=== PATIENT | male | born 1995 | race Two or more races ===

== ENCOUNTER 2016-08-15 10:02 | Inpatient (IN) | payer OTHER ==
[~2016-08-15] VITALS: Ht 185.4 cm; Wt 96.2 kg
[2016-08-15] MEDS ORDERED: SODIUM CHLORIDE 0.9% 1,000 ML IV ONE ×2 (11:17→13:14)
[2016-08-15] MEDS ORDERED: FAMOTIDINE 20 MG/2 ML IVP ONE (11:30)
[2016-08-15] MEDS ORDERED: ONDANSETRON 2MG/ML, 2ML IVPush ONE (11:30)
[2016-08-15] MEDS ORDERED: SODIUM CHLORIDE FLUSH 10ML SYR IVF ONE (11:30)
[2016-08-15] MEDS ORDERED: SODIUM CHLORIDE 0.9% 1,000ML IVBOLUS ONE (11:30)
[2016-08-15] MEDS ORDERED: FAMOTIDINE 20 MG/2 ML ONE (11:31)
[2016-08-15] MEDS ORDERED: ONDANSETRON 2MG/ML, 2ML ONE (11:31)
[2016-08-15 11:38] LABS: HEMOGLOBIN 17.3 g/dL (13.7-18.0)
[2016-08-15 11:50] LABS: ASPARTATE AMINO TRANSFERASE 171 U/L (15-37); BLOOD UREA NITROGEN 11 mg/dL (7-18)
[2016-08-15] MEDS ORDERED: HYDROmorphone 1 MG/ML, 1ML IVPush PRN ×2 (12:00→13:30)
[2016-08-15] MEDS ORDERED: HYDROmorphone 1 MG/ML, 1ML ONE (12:21)
[2016-08-15] MEDS ORDERED: ENOXAPARIN 40 MG/0.4 ML SQ SCH (13:30)
[2016-08-15] MEDS ORDERED: ONDANSETRON 2MG/ML, 2ML IVPush PRN ×3 (13:30)
[2016-08-15] MEDS ORDERED: POLYETHYLENE GLYCOL 17 GM PACKET PO PRN (13:30)
[2016-08-15] MEDS ORDERED: DOCUSATE 100 MG CAPSULE PO PRN (13:30)
[2016-08-15] MEDS ORDERED: PROMETHAZINE 25 MG/ML, 1ML IM PRN (13:30)
[2016-08-15] MEDS ORDERED: SODIUM CHLORIDE FLUSH 10ML SYR IVF PRN (13:30)
[2016-08-15] MEDS ORDERED: BISACODYL 10 MG SUPP PR PRN (13:30)
[2016-08-15] MEDS ORDERED: POTASSIUM PHOSPHATE 44 MEQ in SODIUM CHLORIDE 0.9% 500 ML IV ONE (14:30)
[2016-08-15] MEDS: SODIUM CHLORIDE 0.9% 1,000 ML IV SCH ×2 (15:15→22:43)
[2016-08-15] MEDS: ONDANSETRON 2MG/ML, 2ML IVP PRN ×2 (15:26→22:53)
[2016-08-15] MEDS: MORPHINE SULFATE 4 MG/ML, 1ML IVPush PRN ×2 (15:26→15:43)
[2016-08-15 15:31] VITALS: BP 135/87
[2016-08-15] MEDS ORDERED: HYDROmorphone 1 MG/ML, 1ML IM PRN (18:30)
[2016-08-15 18:46] VITALS: BP 139/93
[2016-08-15] MEDS: HYDROmorphone 1 MG/ML, 1ML IV PRN ×2 (19:33→22:53)
[2016-08-16] VITALS (15 sets, daily range): BP systolic 112–172; BP diastolic 81–127
[2016-08-16] MEDS: SODIUM CHLORIDE 0.9% 1,000 ML IV SCH ×2 (05:00→11:13)
[2016-08-16 05:24] LABS: HEMOGLOBIN 15.8 g/dL (13.7-18.0)
[2016-08-16] MEDS: HYDROmorphone 1 MG/ML, 1ML IV PRN (08:00)
[2016-08-16 08:03] LABS: HEMOGLOBIN 15.4 g/dL (13.7-18.0)
[2016-08-16 08:38] LABS: BLOOD UREA NITROGEN 37 mg/dL (7-18)
[2016-08-16 08:49] LABS: ASPARTATE AMINO TRANSFERASE 203 U/L (15-37)
[2016-08-16 13:34] LABS: BLOOD UREA NITROGEN 44 mg/dL (7-18)
[2016-08-16 13:44] LABS: ASPARTATE AMINO TRANSFERASE 356 U/L (15-37)
[2016-08-16 13:48] LABS: HEMOGLOBIN 14.1 g/dL (13.7-18.0)
[2016-08-16 13:59] LABS: ANISOCYTOSIS 1+
[2016-08-16 14:01] LABS: SPHEROCYTES 1+
[2016-08-16] MEDS ORDERED: INSULIN REGULAR 100 UNITS/ML, 3ML VIAL IVPush STA (14:09)
[2016-08-16] MEDS ORDERED: SODIUM BICARBONATE 1 MEQ/ML, 50ML VIAL IVPush STA (14:09)
[2016-08-16] MEDS ORDERED: DEXTROSE 50%, 50ML SYRINGE IVPush STA (14:09)
[2016-08-16] MEDS ORDERED: SODIUM POLYSTYRENE SULFONATE ORAL SUSP PO ONE (14:30)
[2016-08-16 16:07] LABS: BLOOD UREA NITROGEN 46 mg/dL (7-18)
[2016-08-16] MEDS ORDERED: FENTANYL PF 100 MCG/2ML ONE (16:19)
[2016-08-16 16:21] LABS: PROTIME 12.1 Seconds (9.6-11.5)
[2016-08-16 16:42] LABS: ASPARTATE AMINO TRANSFERASE 377 U/L (15-37)
[2016-08-16 17:14] LABS: DIFF TOTAL CELLS COUNTED 100 CELL DIFF
[2016-08-16 17:15] LABS: HEMOGLOBIN 13.6 g/dL (13.7-18.0)
[2016-08-16 17:20] LABS: VERIFY COUNTS? YES
[2016-08-16 17:21] LABS: ANISOCYTOSIS 1+
[2016-08-16 17:23] LABS: MONOS WITH VACUOLES 1+
[2016-08-16 17:30] LABS: SCHISTOCYTES 1+
[2016-08-16] MEDS ORDERED: POTASSIUM PHOSPHATE 44 MEQ in SODIUM CHLORIDE 0.9% 500 ML IV ONE (17:30)
[2016-08-16] MEDS ORDERED: CALCIUM GLUCONATE 4.6 MEQ/10 ML IV ONE (19:30)
[2016-08-16] MEDS ORDERED: CALCIUM GLUCONATE 4.6 MEQ/10 ML INJ ONE (20:00)
[2016-08-16] MEDS: ONDANSETRON 2MG/ML, 2ML IVP PRN (20:40)
[2016-08-17] VITALS (10 sets, daily range): BP systolic 145–158; BP diastolic 90–110
[2016-08-17] MEDS: HYDROmorphone 1 MG/ML, 1ML IV PRN ×6 (00:48→22:08)
[2016-08-17 07:29] LABS: BLOOD UREA NITROGEN 42 mg/dL (7-18)
[2016-08-17 07:49] LABS: ASPARTATE AMINO TRANSFERASE 379 U/L (15-37)
[2016-08-17 08:02] LABS: HEMOGLOBIN 11.8 g/dL (13.7-18.0)
[2016-08-17 08:16] LABS: DIFF TOTAL CELLS COUNTED 100 CELL DIFF
[2016-08-17] MEDS ORDERED: MAGNESIUM SULFATE PMX 2GM/50ML 50 ML IV ONE (08:30)
[2016-08-17 10:31] LABS: ANISOCYTOSIS 1+; SCHISTOCYTES 1+; SPHEROCYTES 1+; VERIFY COUNTS? YES
[2016-08-17 11:46] LABS: HEP B SURF. AB > 1000.0 mIU/mL (0.0-10.0)
[2016-08-17 12:22] LABS: BLOOD UREA NITROGEN 50 mg/dL (7-18)
[2016-08-17 12:26] LABS: ASPARTATE AMINO TRANSFERASE 392 U/L (15-37)
[2016-08-17 12:46] LABS: HEMOGLOBIN 11.7 g/dL (13.7-18.0)
[2016-08-17 12:47] LABS: DIFF TOTAL CELLS COUNTED 100 CELL DIFF
[2016-08-17 12:50] LABS: ANISOCYTOSIS 1+; SCHISTOCYTES 1+; SPHEROCYTES 1+; VERIFY COUNTS? YES
[2016-08-17] MEDS: SODIUM CHLORIDE 0.9% 1,000 ML IV SCH ×2 (13:13→19:53)
[2016-08-17] MEDS ORDERED: SODIUM CHLORIDE 0.9% 1,000 ML IV SCH (13:13)
[2016-08-17] MEDS: CEFTRIAXONE PMX 2GM/50ML 50 ML IV SCH (15:45)
[2016-08-17] MEDS: AZITHROMYCIN 500 MG in SODIUM CHLORIDE 0.9% 250 ML IV SCH (16:23)
[2016-08-18] VITALS (10 sets, daily range): BP systolic 127–147; BP diastolic 80–105
[2016-08-18] MEDS: SODIUM CHLORIDE 0.9% 1,000 ML IV SCH ×4 (00:15→22:33)
[2016-08-18] MEDS: HYDROmorphone 1 MG/ML, 1ML IV PRN ×5 (04:27→21:09)
[2016-08-18] MEDS: ONDANSETRON 2MG/ML, 2ML IVP PRN ×2 (04:27→12:30)
[2016-08-18 05:52] LABS: BLOOD UREA NITROGEN 78 mg/dL (7-18)
[2016-08-18 06:00] LABS: ASPARTATE AMINO TRANSFERASE 323 U/L (15-37)
[2016-08-18 06:33] LABS: DIFF TOTAL CELLS COUNTED 100 CELL DIFF; HEMOGLOBIN 8.8 g/dL (13.7-18.0)
[2016-08-18 06:35] LABS: ANISOCYTOSIS 1+
[2016-08-18 06:36] LABS: SCHISTOCYTES 1+; VERIFY COUNTS? YES
[2016-08-18 08:15] LABS: HEPATITIS A ANTIBODY TOTAL Reactive (Nonreactive); HEPATITIS C VIRUS ANTIBODY Nonreactive (Nonreactive)
[2016-08-18] MEDS: CHOLECALCIFEROL 400 UNITS TABLET PO SCH ×3 (12:32→21:08)
[2016-08-18] MEDS: CEFTRIAXONE PMX 2GM/50ML 50 ML IV SCH (15:01)
[2016-08-18] MEDS: AZITHROMYCIN 500 MG in SODIUM CHLORIDE 0.9% 250 ML IV SCH (15:37)
[2016-08-18] MEDS ORDERED: CALCIUM GLUCONATE 4.6 MEQ/10 ML INJ ONE (16:00)
[2016-08-19] VITALS (9 sets, daily range): BP systolic 122–158; BP diastolic 59–95
[2016-08-19] MEDS: HYDROmorphone 1 MG/ML, 1ML IV PRN ×6 (00:15→23:06)
[2016-08-19 05:40] LABS: ASPARTATE AMINO TRANSFERASE 112 U/L (15-37); BLOOD UREA NITROGEN 55 mg/dL (7-18)
[2016-08-19 05:42] LABS: HEMOGLOBIN 8.1 g/dL (13.7-18.0)
[2016-08-19 05:57] LABS: DIFF TOTAL CELLS COUNTED 100 CELL DIFF
[2016-08-19 06:00] LABS: ANISOCYTOSIS 1+; POLYCHROMASIA 1+; VERIFY COUNTS? YES
[2016-08-19 06:05] LABS: SCHISTOCYTES 1+
[2016-08-19] MEDS: SODIUM CHLORIDE 0.9% 1,000 ML IV SCH (06:10)
[2016-08-19] MEDS ORDERED: CALCIUM GLUCONATE 4.6 MEQ/10 ML INJ ONE (09:30)
[2016-08-19] MEDS: CHOLECALCIFEROL 400 UNITS TABLET PO SCH ×3 (09:46→21:55)
[2016-08-19] MEDS: ERGOCALCIFEROL 50,000 UNIT CAPSULE PO SCH (09:46)
[2016-08-19] MEDS ORDERED: SODIUM CHLORIDE 0.9% 1,000 ML IV SCH (13:13)
[2016-08-19] MEDS: CEFTRIAXONE PMX 2GM/50ML 50 ML IV SCH (15:33)
[2016-08-19] MEDS: AZITHROMYCIN 500 MG in SODIUM CHLORIDE 0.9% 250 ML IV SCH (16:11)
[2016-08-19] MEDS: ONDANSETRON 2MG/ML, 2ML IVP PRN (23:06)
[2016-08-20] VITALS (16 sets, daily range): BP systolic 121–154; BP diastolic 73–100
[2016-08-20] MEDS: HYDROmorphone 1 MG/ML, 1ML IV PRN ×6 (05:02→23:55)
[2016-08-20 05:05] LABS: HEMOGLOBIN 7.1 g/dL (13.7-18.0)
[2016-08-20 05:11] LABS: ASPARTATE AMINO TRANSFERASE 59 U/L (15-37); BLOOD UREA NITROGEN 47 mg/dL (7-18)
[2016-08-20 05:41] LABS: DIFF TOTAL CELLS COUNTED 100 CELL DIFF
[2016-08-20 05:44] LABS: ANISOCYTOSIS 1+; SCHISTOCYTES 1+; SPHEROCYTES 1+; VERIFY COUNTS? YES
[2016-08-20 05:48] LABS: POLYCHROMASIA 1+
[2016-08-20 06:54] LABS: PROTIME 11.5 Seconds (9.6-11.5)
[2016-08-20] MEDS ORDERED: CALCIUM GLUCONATE 4.6 MEQ/10 ML INJ ONE (09:00)
[2016-08-20] MEDS: CHOLECALCIFEROL 400 UNITS TABLET PO SCH ×3 (09:53→21:00)
[2016-08-20] MEDS ORDERED: DIPHENHYDRAMINE 50 MG/ML, 1ML IVPush ONE (13:30)
[2016-08-20] MEDS: CEFTRIAXONE PMX 2GM/50ML 50 ML IV SCH (16:17)
[2016-08-20] MEDS: AZITHROMYCIN 500 MG in SODIUM CHLORIDE 0.9% 250 ML IV SCH (17:27)
[2016-08-21] VITALS (16 sets, daily range): BP systolic 122–146; BP diastolic 68–96
[2016-08-21] MEDS: HYDROmorphone 1 MG/ML, 1ML IV PRN ×6 (04:42→23:16)
[2016-08-21] MEDS: ONDANSETRON 2MG/ML, 2ML IVP PRN (04:42)
[2016-08-21 04:57] LABS: BLOOD UREA NITROGEN 66 mg/dL (7-18)
[2016-08-21 05:02] LABS: ASPARTATE AMINO TRANSFERASE 33 U/L (15-37)
[2016-08-21 05:17] LABS: HEMOGLOBIN 9.5 g/dL (13.7-18.0)
[2016-08-21 05:52] LABS: DIFF TOTAL CELLS COUNTED 100 CELL DIFF
[2016-08-21 05:53] LABS: ANISOCYTOSIS 1+; VERIFY COUNTS? YES
[2016-08-21 05:54] LABS: POLYCHROMASIA 1+
[2016-08-21 05:56] LABS: SCHISTOCYTES 1+
[2016-08-21] MEDS: CHOLECALCIFEROL 400 UNITS TABLET PO SCH ×3 (08:27→22:14)
[2016-08-21] MEDS ORDERED: CALCIUM GLUCONATE 4.6 MEQ/10 ML INJ ONE (09:30)
[2016-08-21] MEDS: CEFDINIR 300 MG CAPSULE PO SCH (22:14)
[2016-08-22] VITALS (14 sets, daily range): BP systolic 132–150; BP diastolic 60–107
[2016-08-22] MEDS: HYDROmorphone 1 MG/ML, 1ML IV PRN ×6 (02:18→21:47)
[2016-08-22 05:41] LABS: HEMOGLOBIN 9.3 g/dL (13.7-18.0)
[2016-08-22 06:04] LABS: BLOOD UREA NITROGEN 46 mg/dL (7-18)
[2016-08-22] MEDS: CHOLECALCIFEROL 400 UNITS TABLET PO SCH ×3 (08:54→21:47)
[2016-08-22] MEDS ORDERED: CALCIUM GLUCONATE 4.6 MEQ/10 ML INJ ONE (10:30)
[2016-08-22] MEDS ORDERED: DIPHENHYDRAMINE 25 MG CAPSULE PO ONE (13:00)
[2016-08-22] MEDS ORDERED: DIPHENHYDRAMINE 50 MG/ML, 1ML IVPush ONE (13:00)
[2016-08-22 16:47] LABS: ANA SCREEN NEGATIVE (Negative)
[2016-08-22] MEDS: CEFDINIR 300 MG CAPSULE PO SCH (21:47)
[2016-08-23] VITALS (9 sets, daily range): BP systolic 145–161; BP diastolic 78–104
[2016-08-23] MEDS: HYDROmorphone 1 MG/ML, 1ML IV PRN ×7 (00:55→21:39)
[2016-08-23 04:34] LABS: BLOOD UREA NITROGEN 64 mg/dL (7-18)
[2016-08-23] MEDS: CHOLECALCIFEROL 400 UNITS TABLET PO SCH ×3 (08:56→21:39)
[2016-08-23 09:15] LABS: HEMOGLOBIN 9.4 g/dL (13.7-18.0)
[2016-08-23] MEDS ORDERED: DIPHENHYDRAMINE 25 MG CAPSULE PO ONE (14:30)
[2016-08-23] MEDS ORDERED: DIPHENHYDRAMINE 25 MG CAPSULE ONE (14:35)
[2016-08-23] MEDS ORDERED: CALCIUM GLUCONATE 4.6 MEQ/10 ML IV ONE (15:00)
[2016-08-23] MEDS: CEFDINIR 300 MG CAPSULE PO SCH (21:39)
[2016-08-24] MEDS: HYDROmorphone 1 MG/ML, 1ML IV PRN ×6 (00:42→17:41)
[2016-08-24 02:42] VITALS: BP 147/102
[2016-08-24] MEDS ORDERED: LABETALOL 5MG/ML, 20ML IVPush PRN ×2 (03:00→20:48)
[2016-08-24 04:30] VITALS: BP 148/89
[2016-08-24 05:28] LABS: HEMOGLOBIN 8.9 g/dL (13.7-18.0)
[2016-08-24 05:43] LABS: BLOOD UREA NITROGEN 44 mg/dL (7-18)
[2016-08-24 05:46] LABS: ASPARTATE AMINO TRANSFERASE 26 U/L (15-37)
[2016-08-24] MEDS: CHOLECALCIFEROL 400 UNITS TABLET PO SCH ×3 (08:07→20:56)
[2016-08-24] MEDS ORDERED: MIDAZOLAM 1 MG/ML, 5ML ONE (10:14)
[2016-08-24] MEDS ORDERED: FENTANYL PF 100 MCG/2ML ONE (10:15)
[2016-08-24] MEDS ORDERED: FLUMAZENIL 0.1 MG/1 ML, 5ML ONE (10:15)
[2016-08-24] MEDS ORDERED: NALOXONE 1 MG/ML, 2ML ONE (10:15)
[2016-08-24] MEDS ORDERED: FUROSEMIDE 20 MG/2 ML IV ONE (10:30)
[2016-08-24 11:56] VITALS: BP 142/89
[2016-08-24 13:45] VITALS: BP 150/92
[2016-08-24 16:56] LABS: HEMOGLOBIN 8.4 g/dL (13.7-18.0)
[2016-08-24 20:22] VITALS: BP 154/84
[2016-08-24] MEDS: CEFDINIR 300 MG CAPSULE PO SCH (20:55)
[2016-08-25] MEDS: HYDROmorphone 1 MG/ML, 1ML IV PRN ×4 (00:22→19:51)
[2016-08-25 02:47] VITALS: BP 155/97
[2016-08-25 06:01] LABS: HEMOGLOBIN 8.1 g/dL (13.7-18.0)
[2016-08-25 06:18] LABS: DIFF TOTAL CELLS COUNTED 100 CELL DIFF
[2016-08-25 06:20] LABS: ANISOCYTOSIS 1+; VERIFY COUNTS? YES
[2016-08-25 06:39] LABS: ASPARTATE AMINO TRANSFERASE 23 U/L (15-37)
[2016-08-25 07:17] LABS: BLOOD UREA NITROGEN 55 mg/dL (7-18)
[2016-08-25 08:30] VITALS: BP 152/96
[2016-08-25] MEDS ORDERED: FUROSEMIDE 20 MG/2 ML IV SCH (09:00)
[2016-08-25] MEDS: CHOLECALCIFEROL 400 UNITS TABLET PO SCH ×3 (09:10→19:50)
[2016-08-25] MEDS: POTASSIUM CHLORIDE 20 MEQ TAB.ER.PRT PO SCH (09:10)
[2016-08-25 19:23] VITALS: BP 148/89
[2016-08-25] MEDS: CEFDINIR 300 MG CAPSULE PO SCH (19:50)
[2016-08-25] MEDS: FUROSEMIDE 20 MG/2 ML IV SCH (19:50)
[2016-08-26 02:05] VITALS: BP 152/84
[2016-08-26] MEDS: HYDROmorphone 1 MG/ML, 1ML IV PRN ×2 (02:10→09:00)
[2016-08-26 05:38] LABS: HEMOGLOBIN 8.2 g/dL (13.7-18.0)
[2016-08-26 06:02] LABS: ASPARTATE AMINO TRANSFERASE 22 U/L (15-37); BLOOD UREA NITROGEN 36 mg/dL (7-18)
[2016-08-26 06:57] LABS: DIFF TOTAL CELLS COUNTED 100 CELL DIFF
[2016-08-26] MEDS ORDERED: HYDR-3241 PO (06:58)
[2016-08-26] MEDS ORDERED: FURO10VI37 IV (06:58)
[2016-08-26] MEDS ORDERED: CEFD300C2 PO (06:58)
[2016-08-26] MEDS ORDERED: ERGO500017 PO (06:58)
[2016-08-26] MEDS ORDERED: CHOL400T2 PO (06:58)
[2016-08-26] MEDS ORDERED: POTA20TA6 PO (06:58)
[2016-08-26 06:59] LABS: ANISOCYTOSIS 1+; VERIFY COUNTS? YES
[2016-08-26 07:00] LABS: HYPOCHROMIA 1+; POLYCHROMASIA 1+
[2016-08-26 07:47] VITALS: BP 147/96
[2016-08-26] MEDS: POTASSIUM CHLORIDE 20 MEQ TAB.ER.PRT PO SCH (08:59)
[2016-08-26] MEDS: FUROSEMIDE 20 MG/2 ML IV SCH (08:59)
[2016-08-26] MEDS: ERGOCALCIFEROL 50,000 UNIT CAPSULE PO SCH (09:00)
[2016-08-26] MEDS: CHOLECALCIFEROL 400 UNITS TABLET PO SCH (09:00)
== END 2016-08-26 12:38 | disposition short-term general hospital (02) | DRG 438 ==
LOC: ED 13:13 → EDIP 13:14 → ED 13:28 → 4WST 15:15
PROVIDERS: ADMIT Hospitalist; ATTEND Hospitalist
PROC: 0T9B70Z Drainage of Bladder with Drainage Device, Via Natural or Artificial Opening (ICD-10-PCS; 2016-08-15)
PROC: 02HV33Z Insertion of Infusion Device into Superior Vena Cava, Percutaneous Approach (ICD-10-PCS; principal; 2016-08-16)
PROC: B548ZZA Ultrasonography of Superior Vena Cava, Guidance (ICD-10-PCS; 2016-08-16)
PROC: B5181ZA Fluoroscopy of Superior Vena Cava using Low Osmolar Contrast, Guidance (ICD-10-PCS; 2016-08-16)
PROC: 6A551Z3 Pheresis of Plasma, Multiple (ICD-10-PCS; 2016-08-16)
PROC: 5A1D60Z (ICD-10-PCS; 2016-08-17)
PROC: 30233L1 Transfusion of Nonautologous Fresh Plasma into Peripheral Vein, Percutaneous Approach (ICD-10-PCS; 2016-08-19)
PROC: 30233N1 Transfusion of Nonautologous Red Blood Cells into Peripheral Vein, Percutaneous Approach (ICD-10-PCS; 2016-08-19)
PROC: 30233K1 Transfusion of Nonautologous Frozen Plasma into Peripheral Vein, Percutaneous Approach (ICD-10-PCS; 2016-08-19)
PROC: 0TB13ZX Excision of Left Kidney, Percutaneous Approach, Diagnostic (ICD-10-PCS; 2016-08-24)
DX: K85.20 Alcohol induced acute pancreatitis without necrosis or infection (principal); J18.9 Pneumonia, unspecified organism; D65 Disseminated intravascular coagulation [defibrination syndrome]; M31.1 Thrombotic microangiopathy; D59.3 Hemolytic-uremic syndrome; N17.9 Acute kidney failure, unspecified; D59.4 Other nonautoimmune hemolytic anemias; E83.39 Other disorders of phosphorus metabolism; E87.5 Hyperkalemia; F10.20 Alcohol dependence, uncomplicated; K70.10 Alcoholic hepatitis without ascites; R31.29 Other microscopic hematuria; R60.0 Localized edema; Z82.49 Family history of ischemic heart disease and other diseases of the circulatory system; Z99.2 Dependence on renal dialysis
CPT/HCPCS: 36415; 36514; 36556; 50200; 71010; 74150; 76700; 76937; 77001; 77012; 78707; 80053; 80061; 80069; 81001; 82105; 82140; 82248; 82306; 82330; 82550; 82570; 83010; 83516; 83605; 83615; 83690; 83735; 84100; 84145; 84156; 84300; 84425; 84590; 84630; 85025; 85045; 85049; 85379; 85384; 85397; 85555; 85610; 85651; 85730; 86038; 86140; 86157; 86704; 86706; 86708; 86803; 86850; 86880; 86900; 86923; 87040; 87086; 87340; 88300; 93306; 96361; 96374; 96375; 99156; 99157; J0456; J0696; J1170; J1815; J2250; J2405; J2550; J3010; A9562; C1751; C9898; J0610; J1200; J1642; J1940; J2310; J3475; J7030; J7040; J7050; J7512; P9016; P9017; Q0163; S0028

== ENCOUNTER 2017-09-27 12:26 | Inpatient (IN) | payer OTHER ==
[~2017-09-27] VITALS: Ht 185.4 cm; Wt 80.0 kg
[~2017-09-27 12:26] MED LIST: CEFD300C37 PO; CHOL400T2 PO; ERGO500017 PO; FURO10VI37 IV; HYDR-3241 PO; POTA20TA6 PO
[2017-09-27] MEDS ORDERED: SODIUM CHLORIDE FLUSH 10ML SYR IVF ONE ×2 (13:30→15:30)
[2017-09-27 13:37] LABS: MEAN CORPUSCULAR HEMOGLOBIN 33.1 pg (27.5-34.5); MEAN CORPUSCULAR VOLUME 97.3 fL (81-97); RED BLOOD COUNT 5.01 x10^6/uL (4.38-5.82)
[2017-09-27 13:38] LABS: BASOPHILS # (AUTO) 0.01 x10^3/uL (0-0.1); BASOPHILS % (AUTO) 0 % (0-1); EOSINOPHILS % (AUTO) 0 % (1-7); LYMPHOCYTES # (AUTO) 0.52 x10^3/uL (1-3.4); LYMPHOCYTES % (AUTO) 4 % (22-44); MD NO; MEAN PLATELET VOLUME 7.8 fL (7.4-10.4); MONOCYTES # (AUTO) 1.02 x10^3/uL (0.2-0.8); MONOCYTES % (AUTO) 8 % (2-9); NEUTROPHILS # (AUTO) 10.94 x10^3/uL (1.8-6.8); NEUTROPHILS % (AUTO) 88 % (42-75); PLATELET COUNT 199 x10^3/uL (130-400); RED CELL DISTRIBUTION WIDTH 14.3 % (9.4-14.8)
[2017-09-27 13:45] LABS: INTERNATIONAL NORMALIZED RATIO 1.06 (0.93-1.1)
[2017-09-27 13:51] LABS: ALANINE AMINOTRANSFERASE 50 U/L (12-78); ALBUMIN 4.2 g/dL (3.4-5.0); ANION GAP 11 mmol/L (5-15); CALCIUM 8.8 mg/dL (8.5-10.1); CHLORIDE 96 mmol/L (98-107)
[2017-09-27 13:54] LABS: ALKALINE PHOSPHATASE 117 U/L (45-117); BILIRUBIN,TOTAL 1.4 mg/dL (0.2-1.0); TOTAL PROTEIN 7.7 g/dL (6.4-8.2)
[2017-09-27] MEDS ORDERED: PROMETHAZINE 25 MG/ML, 1ML IM ONE (15:30)
[2017-09-27] MEDS ORDERED: SODIUM CHLORIDE 0.9% 1,000ML IVBOLUS ONE (15:30)
[2017-09-27] MEDS ORDERED: PROMETHAZINE 25 MG/ML, 1ML ONE (15:45)
[2017-09-27] MEDS ORDERED: MORPHINE SULFATE 4 MG/ML, 1ML ONE ×2 (15:45→17:15)
[2017-09-27] MEDS: MORPHINE SULFATE 4 MG/ML, 1ML IVPush PRN ×2 (15:51→17:19)
[2017-09-27] MEDS ORDERED: FLUO40CA9 PO (18:19)
[2017-09-27] MEDS ORDERED: GABA300C10 PO (18:19)
[2017-09-27] MEDS ORDERED: ONDANSETRON 2MG/ML, 2ML IVPush PRN (18:30)
[2017-09-27] MEDS ORDERED: BISACODYL 10 MG SUPP PR PRN (18:30)
[2017-09-27] MEDS: SODIUM CHLORIDE 0.9% 1,000 ML IV SCH (19:00)
[2017-09-27] MEDS ORDERED: morphine SULFATE 10 MG/ML, 1ML ONE (19:23)
[2017-09-27] MEDS: morphine SULFATE 10 MG/ML, 1ML IVPush PRN ×2 (19:25→23:20)
[2017-09-27 19:27] LABS: FOLATE LEVEL 6.3 ng/mL (3.1-17.5)
[2017-09-27 22:27] VITALS: BP 137/96
[2017-09-27] MEDS: CHOLECALCIFEROL 400 UNITS TABLET PO SCH (23:20)
[2017-09-28] MEDS: SODIUM CHLORIDE 0.9% 1,000 ML IV SCH ×2 (01:11→08:51)
[2017-09-28] MEDS: HEPARIN 5,000 UNITS/ML, 1ML SQ SCH ×3 (01:12→17:21)
[2017-09-28 02:44] VITALS: BP 132/90
[2017-09-28 05:49] LABS: MEAN CORPUSCULAR HEMOGLOBIN 33.6 pg (27.5-34.5); MEAN CORPUSCULAR HGB CONC 34.3 g/dL (33.2-36.2); MEAN CORPUSCULAR VOLUME 97.9 fL (81-97); MEAN PLATELET VOLUME 8.1 fL (7.4-10.4); PLATELET COUNT 150 x10^3/uL (130-400); RED BLOOD COUNT 4.81 x10^6/uL (4.38-5.82); RED CELL DISTRIBUTION WIDTH 14.9 % (9.4-14.8)
[2017-09-28 05:59] LABS: ALBUMIN 3.2 g/dL (3.4-5.0); CHLORIDE 102 mmol/L (98-107)
[2017-09-28] MEDS: morphine SULFATE 10 MG/ML, 1ML IVPush PRN ×5 (06:01→20:57)
[2017-09-28 06:10] LABS: BASOPHILS % (AUTO) 0 % (0-1); EOSINOPHILS # (AUTO) 0.01 x10^3/uL (0-0.4); EOSINOPHILS % (AUTO) 0 % (1-7); LYMPHOCYTES # (AUTO) 0.49 x10^3/uL (1-3.4); LYMPHOCYTES % (AUTO) 4 % (22-44); MD SCAN; MONOCYTES % (AUTO) 7 % (2-9); NEUTROPHILS # (AUTO) 10.47 x10^3/uL (1.8-6.8); NEUTROPHILS % (AUTO) 89 % (42-75)
[2017-09-28 06:13] LABS: ALANINE AMINOTRANSFERASE 62 U/L (12-78); ALKALINE PHOSPHATASE 87 U/L (45-117); ANION GAP 10 mmol/L (5-15); BILIRUBIN,TOTAL 2.2 mg/dL (0.2-1.0); CALCIUM 8.5 mg/dL (8.5-10.1); CHOL/HDL RATIO 3.4; CHOLESTEROL, TOTAL 120 mg/dL (140-239); CREATININE 0.63 mg/dL (0.7-1.3); HDL CHOL % 29 % (26-37); HDL CHOLESTEROL (DIRECT) 35 mg/dL (40-60); LDL CHOLESTEROL,CALCULATED 56 mg/dL (54-169); LDL/HDL RATIO 1.6 (0.5-3.0); TOTAL PROTEIN 6.1 g/dL (6.4-8.2); TRIGLYCERIDES 145 mg/dL (50-200); VLDL CHOLESTEROL 29 mg/dL (0-25)
[2017-09-28 07:36] VITALS: BP 131/97
[2017-09-28] MEDS: CHOLECALCIFEROL 400 UNITS TABLET PO SCH ×4 (09:00→21:00)
[2017-09-28] MEDS: POTASSIUM CHLORIDE 20 MEQ in LACTATED RINGERS 1,000 ML IV SCH ×2 (10:57→15:57)
[2017-09-28 12:40] VITALS: BP 137/98
[2017-09-28 13:19] LABS: MICROSCOPIC INDICATED
[2017-09-28 13:49] LABS: CULTURE INDICATED? YES
[2017-09-28 20:59] VITALS: BP 129/86
[2017-09-29] MEDS: POTASSIUM CHLORIDE 20 MEQ in LACTATED RINGERS 1,000 ML IV SCH ×5 (00:23→22:50)
[2017-09-29] MEDS: morphine SULFATE 10 MG/ML, 1ML IVPush PRN ×3 (01:02→09:12)
[2017-09-29] MEDS: HEPARIN 5,000 UNITS/ML, 1ML SQ SCH ×3 (01:02→16:57)
[2017-09-29 03:20] VITALS: BP 131/93
[2017-09-29 05:26] LABS: ALBUMIN 2.6 g/dL (3.4-5.0); ANION GAP 6 mmol/L (5-15); CALCIUM 8.5 mg/dL (8.5-10.1); CHLORIDE 101 mmol/L (98-107)
[2017-09-29 05:31] LABS: ALANINE AMINOTRANSFERASE 38 U/L (12-78); ALKALINE PHOSPHATASE 82 U/L (45-117); CREATININE 0.69 mg/dL (0.7-1.3); TOTAL PROTEIN 5.9 g/dL (6.4-8.2)
[2017-09-29 05:34] LABS: BASOPHILS # (AUTO) 0.03 x10^3/uL (0-0.1); BASOPHILS % (AUTO) 0 % (0-1); EOSINOPHILS # (AUTO) 0.12 x10^3/uL (0-0.4); EOSINOPHILS % (AUTO) 1 % (1-7); LYMPHOCYTES # (AUTO) 1.19 x10^3/uL (1-3.4); LYMPHOCYTES % (AUTO) 13 % (22-44); MD NO; MEAN CORPUSCULAR HEMOGLOBIN 33.6 pg (27.5-34.5); MEAN CORPUSCULAR HGB CONC 34.3 g/dL (33.2-36.2); MONOCYTES # (AUTO) 0.78 x10^3/uL (0.2-0.8); MONOCYTES % (AUTO) 8 % (2-9); NEUTROPHILS # (AUTO) 7.14 x10^3/uL (1.8-6.8); NEUTROPHILS % (AUTO) 77 % (42-75); PLATELET COUNT 121 x10^3/uL (130-400); RED CELL DISTRIBUTION WIDTH 15.5 % (9.4-14.8)
[2017-09-29 08:52] VITALS: BP 130/93
[2017-09-29] MEDS: CHOLECALCIFEROL 400 UNITS TABLET PO SCH ×3 (09:00→22:26)
[2017-09-29] MEDS ORDERED: MORPHINE SULFATE 4 MG/ML, 1ML ONE (09:10)
[2017-09-29] MEDS ORDERED: OMNIPAQUE 350 MG/ML, 100ML BOTTLE ONE (10:44)
[2017-09-29 13:08] VITALS: BP 129/92
[2017-09-29 16:18] LABS: THYROID STIMULATING HORMONE 1.19 mIU/L (0.358-3.740)
[2017-09-29 20:01] VITALS: BP 130/87
[2017-09-30 00:49] VITALS: BP 133/85
[2017-09-30] MEDS ORDERED: ACETAMINOPHEN 325 MG TABLET ONE (01:05)
[2017-09-30] MEDS: HEPARIN 5,000 UNITS/ML, 1ML SQ SCH ×3 (01:08→16:52)
[2017-09-30] MEDS ORDERED: ACETAMINOPHEN 325 MG TABLET PO PRN (01:30)
[2017-09-30] MEDS: POTASSIUM CHLORIDE 20 MEQ in LACTATED RINGERS 1,000 ML IV SCH (04:10)
[2017-09-30 04:59] LABS: BASOPHILS # (AUTO) 0.05 x10^3/uL (0-0.1); BASOPHILS % (AUTO) 1 % (0-1); EOSINOPHILS # (AUTO) 0.11 x10^3/uL (0-0.4); EOSINOPHILS % (AUTO) 1 % (1-7); LYMPHOCYTES # (AUTO) 1.23 x10^3/uL (1-3.4); LYMPHOCYTES % (AUTO) 14 % (22-44); MD NO; MEAN CORPUSCULAR HEMOGLOBIN 33.8 pg (27.5-34.5); MEAN CORPUSCULAR HGB CONC 34.5 g/dL (33.2-36.2); MEAN CORPUSCULAR VOLUME 97.8 fL (81-97); MEAN PLATELET VOLUME 8.1 fL (7.4-10.4); MONOCYTES # (AUTO) 0.86 x10^3/uL (0.2-0.8); MONOCYTES % (AUTO) 10 % (2-9); NEUTROPHILS # (AUTO) 6.63 x10^3/uL (1.8-6.8); NEUTROPHILS % (AUTO) 75 % (42-75); PLATELET COUNT 148 x10^3/uL (130-400); RED BLOOD COUNT 4.02 x10^6/uL (4.38-5.82); RED CELL DISTRIBUTION WIDTH 15.6 % (9.4-14.8)
[2017-09-30 05:05] LABS: ALBUMIN 2.8 g/dL (3.4-5.0); ANION GAP 9 mmol/L (5-15); CALCIUM 8.9 mg/dL (8.5-10.1); CHLORIDE 101 mmol/L (98-107)
[2017-09-30 05:11] LABS: ALANINE AMINOTRANSFERASE 30 U/L (12-78); ALKALINE PHOSPHATASE 85 U/L (45-117); BILIRUBIN,TOTAL 1.2 mg/dL (0.2-1.0); CREATININE 0.58 mg/dL (0.7-1.3); TOTAL PROTEIN 6.2 g/dL (6.4-8.2)
[2017-09-30] MEDS ORDERED: POTASSIUM CHLORIDE 20 MEQ TAB.ER.PRT PO ONE (07:30)
[2017-09-30 08:03] VITALS: BP 139/98
[2017-09-30] MEDS: CHOLECALCIFEROL 400 UNITS TABLET PO SCH ×3 (08:03→20:53)
[2017-09-30 13:29] VITALS: BP 132/91
[2017-09-30 19:44] VITALS: BP 143/77
[2017-09-30] MEDS: morphine SULFATE 10 MG/ML, 1ML IVPush PRN ×2 (20:53→22:36)
[2017-10-01] MEDS: HEPARIN 5,000 UNITS/ML, 1ML SQ SCH ×2 (01:17→10:03)
[2017-10-01] MEDS: morphine SULFATE 10 MG/ML, 1ML IVPush PRN (01:17)
[2017-10-01 02:47] VITALS: BP 148/96
[2017-10-01 08:00] VITALS: BP 131/92
[2017-10-01] MEDS ORDERED: MULTIVITAMIN 1 TABLET PO SCH (09:00)
[2017-10-01] MEDS ORDERED: THIAMINE 100MG TABLET PO SCH (09:00)
[2017-10-01] MEDS ORDERED: FOLIC ACID 1 MG TABLET PO SCH (09:00)
[2017-10-01] MEDS: CHOLECALCIFEROL 400 UNITS TABLET PO SCH (10:06)
== END 2017-10-01 12:10 | disposition home or self-care (01) | DRG 640 ==
LOC: ED 17:17 → EDIP 17:18 → ED 17:21 → 4NOR 22:24
PROVIDERS: ADMIT Internal Medicine; ATTEND Internal Medicine
DX: E87.1 Hypo-osmolality and hyponatremia (principal); K85.00 Idiopathic acute pancreatitis without necrosis or infection; R65.10 Systemic inflammatory response syndrome (SIRS) of non-infectious origin without acute organ dysfunction; R17 Unspecified jaundice; D75.89 Other specified diseases of blood and blood-forming organs; R00.0 Tachycardia, unspecified; Z82.49 Family history of ischemic heart disease and other diseases of the circulatory system
CPT/HCPCS: 36415; 74177; 80053; 80061; 80307; 81001; 82607; 82746; 83690; 83735; 84443; 85025; 85610; 87040; 87086; 93005; 96361; 96372; 96374; 96376; J1644; J2550; J3480; Q9967; J2270; J7030; J7120